=== PATIENT | male | born 1940 | race Caucasian/White ===

== ENCOUNTER 2018-07-13 00:17 | Inpatient (IN) | payer MEDICARE, OTHER ==
[2018-07-13] VITALS (15 sets, daily range): BP systolic 113–166; BP diastolic 55–100
[~2018-07-13] VITALS: Ht 172.7 cm; Wt 65.3 kg
[~2018-07-13 00:17] MED LIST: ASPI-757 PO; ATR80PT PO; LISI-374 PO; METF-450 PO; METO50TA19 PO
--- NOTE | 2018-07-13 04:52 | LEVENE H&P ---
DATE OF ADMISSION: July 13, 2018 IDENTIFICATION/CHIEF COMPLAINT Cristian is an 78-year-old gentleman with chief complaint of left hip pain. HISTORY OF PRESENT ILLNESS Patient has a longstanding history of hip arthritis, progressively painful and debilitating, refractory to conservative care. Surgery is indicated to relieve symptoms after failure of nonoperative measures. PAST MEDICAL HISTORY Notable for hypercholesterolemia, hypertension, remote history of blood transfusion. ALLERGIES MILK. He has no known drug allergies. CURRENT MEDICATIONS 1. Metformin 500 mg p.o. b.i.d. 2. Atorvastatin 80 mg p.o. daily. 3. Aspirin 325 mg p.o. daily. 4. Metoprolol ER 50 mg p.o. daily. 5. Lisinopril 40 mg p.o. daily. PAST SURGICAL HISTORY Notable for prior hip fracture and subsequent hardware removal from the same side, lumbar fracture, prostatectomy, and subsequent surgery for removal of scar tissue around the prostate area. REVIEW OF SYSTEMS Notable for prostate cancer with no evidence of recurrent disease, borderline diabetes, severe headaches, and transient ischemic attacks. SOCIAL HISTORY Negative for tobacco and alcohol use. FAMILY HISTORY Noncontributory. PHYSICAL EXAMINATION GENERAL: This is a healthy male who appears stated age. HEENT: Normocephalic, atraumatic. NECK: Supple. LUNGS: Clear. HEART: Regular. ABDOMEN: Soft. ORTHOPEDIC: Left hip is painful with combined flexion and rotation. He is stiff, lacking significant internal rotation versus contralateral. Hip girdle strength is good. Skin envelope is intact. Calves nontender. Neurovascular function intact. Radiographs demonstrate end-stage hip arthritis. ASSESSMENT Left hip degenerative joint disease refractory to conservative care. PLAN Per patient request, will proceed with total hip arthroplasty. The nature of the procedure, risks and benefits, and the anticipated rehab course were reviewed. The risks include but are not limited to , major medical or anesthetic complications, infection, neurovascular injury, blood transfusion, stiffness, scarring, fracture, tendon rupture, instability, implant loosening, migration, or failure, persistent or recurrent pain, leg length discrepancy, need for future surgery, and other unforeseen. He understands and wishes to proceed. Signed permit was placed on the chart. No guarantees were given or implied. SHERRI
[2018-07-13] MEDS ORDERED: METOPROLOL SUCC XL 50 MG TABCR 50 MG TAB.ER.24H PO ONE (08:35)
[2018-07-13] MEDS ORDERED: MIDAZOLAM 2 MG/2 ML VIAL IVP PRN (08:45)
[2018-07-13] MEDS ORDERED: ROPIVACAINE/EPI/CLONIDINE/KET 50 ML SYRINGE INJ ONE (08:45)
[2018-07-13] MEDS ORDERED: NORMOSOL R SOLN(*) 1000 ML BAG 1,000 ML IV PRN ×2 (08:45→13:15)
[2018-07-13] MEDS ORDERED: FAMOTIDINE 20 MG TAB PO ONE (08:45)
[2018-07-13] MEDS ORDERED: ceFAZolin(*) 1 GM VIAL 1 GM in NS(*) 0.9% 100 ML MINI-BAG 100 ML IVPB ONE (08:45)
[2018-07-13] MEDS ORDERED: ACETAMINOPHEN 500 MG TAB PO ONE (08:45)
[2018-07-13] MEDS ORDERED: PREGABALIN 75 MG CAPSULE PO ONE (08:45)
[2018-07-13] MEDS ORDERED: TRANEXAMIC AC 1000 MG/10ML SDV 1,000 MG in DEXTROSE 5% 50 ML BAG 50 ML IV ONE (08:45)
[2018-07-13] MEDS ORDERED: CELECOXIB 200 MG CAP PO ONE (08:45)
[2018-07-13] MEDS ORDERED: LIDOCAINE/SOD BICARB 8.4% SYR ID ONE (08:45)
[2018-07-13] MEDS ORDERED: fentaNYL CITR 100 MCG/2 ML AMP ONE (09:26)
[2018-07-13] MEDS ORDERED: DEXAMETHASONE SOD PHOS 10MG/ML ONE (09:27)
[2018-07-13] MEDS ORDERED: ONDANSETRON 4 MG/2 ML VIAL ONE (09:27)
[2018-07-13] MEDS ORDERED: KETAMINE HCL-NS 50 MG/5 ML SYR ONE (09:27)
[2018-07-13] MEDS ORDERED: LIDOCAINE MPF 1% 5 ML VIAL ONE (09:27)
[2018-07-13] MEDS ORDERED: PROPOFOL EMUL(*) 10MG/ML 20 ML 20 ML ONE (09:27)
[2018-07-13] MEDS ORDERED: VANCOMYCIN 1 GM VIAL ONE (11:24)
[2018-07-13] MEDS ORDERED: PROMETHAZINE 25 MG/ML 1 ML AMP IVP PRN (13:15)
[2018-07-13] MEDS ORDERED: BENZOCAINE/MENTHOL 1 EACH LOZG PO PRN (13:15)
[2018-07-13] MEDS ORDERED: ZOLPIDEM TARTRATE 5 MG TAB PO PRN (13:15)
[2018-07-13] MEDS ORDERED: diphenhydrAMINE 25 MG CAP PO PRN (13:15)
[2018-07-13] MEDS ORDERED: FLUSH 10 ML SYR IVP PRN (13:15)
[2018-07-13] MEDS ORDERED: ACETAMINOPHEN 325 MG TAB PO PRN (13:15)
[2018-07-13] MEDS ORDERED: BISACODYL 10 MG SUPP PR PRN (13:15)
[2018-07-13] MEDS ORDERED: MAGNESIUM HYDROXIDE* 30ML UDCP PO PRN (13:15)
[2018-07-13] MEDS ORDERED: diphenhydrAMINE 50 MG/ML VIAL IVP PRN (13:15)
[2018-07-13] MEDS ORDERED: DIAZEPAM 5 MG TAB PO PRN (13:15)
--- NOTE | 2018-07-13 14:47 | RADIOLOGY IMAGING REPORT ---
FACILITY: [facility] [place] PATIENT NAME: Cristian Pisano : 1940 MR: [id number] V: [id number] EXAM DATE: ORDERING PHYSICIAN: KARRIE SCHRADER TECHNOLOGIST: Location: [facility] [place] Patient: Cristian Pisano : 1940 Visit/Account:[id number] Date of Sevice: 07/13/2018 PELVIS INDICATION: Left hip arthroplasty. COMPARISON: None available FINDINGS: Single frontal view of the pelvis is obtained. A left total hip arthroplasty has been placed. Compone nts project in near anatomic alignment. No fracture. There is gas within the operative bed and within the joint space. There are overlying skin glory. There are atherosclerotic vascular calcifications seen within the femoral vessels bilaterally. Surgical clips noted in the pelvis. Correlate clinicall y. IMPRESSION: 1. Interval left total hip arthroplasty placement. Report Dictated By: Tonio Desai at 07/13/2018 2:42 PM Report E-Signed By: Tonio Desai at 07/13/2018 2:44 PM WSN:[id number]
--- NOTE | 2018-07-13 15:24 | Hospitalist Consultation ---
History of Present Illness Requesting Physician Dr. Vogt Reason for Consult Medical Management Chief Complaint s/p left hip replacement History of Present Illness He was admitted s/p left hip replacement. It is reported the surgery went well and without complication. History Problems: (1) Type 2 diabetes mellitus Status: Chronic (2) Hypertension Status: Chronic (3) Hyperlipidemia Status: Chronic (4) TIA (transient ischemic attack) Status: Chronic Home Meds Reported Medications Metformin Hcl (METFORMIN HCL) 500 Mg Tablet, 0.5 TAB PO BID, TAB 07/07/18 Lisinopril (LISINOPRIL) 40 Mg Tablet, 40 MG PO QDAY, TAB 07/07/18 Metoprolol Succinate (METOPROLOL SUCCINATE) 50 Mg Tab.er.24h, 1 TAB PO QDAY, TAB 07/07/18 Aspirin (ASPIRIN) 325 Mg Tablet, 325 MG PO DAILY, TAB 07/07/18 Atorvastatin (LIPITOR) 80 Mg Tab, 1 TAB PO QDAY, TAB 07/07/18 Allergies: Coded Allergies: milk (Verified Allergy, Mild, DIARRHEA, 07/07/18) Hx Smoking: No Caffeine Intake: Coffee, Soda Caffeine/Cups Per Day: MTN DEW, 1/2 CUP COFFEE Hx Alcohol Use: Yes When Quit Alcohol?: 2018 Hx Substance Use Disorder: No Review of Systems All Systems Reviewed/Normal: Yes, Except as Noted Exam Vital Signs Vital Signs Date Time Temp Pulse Resp B/P (MAP) Pulse Ox O2 Delivery O2 Flow Rate FiO2 07/13/18 14:59 100 Nasal Cannula 2.0 07/13/18 14:45 97.0 70 14 143/76 (98) General Appearance: Alert, Awake, No Acute Distress, Afebrile Neuro: No Gross deficits Cardiovascular: Regular Rate and Rhythm Respiratory: No Respiratory Distress, Clear to Auscultation Psych: Alert & Oriented X3, Appropriate Mood & Affect Assessment and Plan Problems: (1) Status post left hip replacement Status: Acute Assessment & Plan: Followed by Dr. Vogt. He will be placed on Aspirin for DVT prophylaxis. (2) Type 2 diabetes mellitus Status: Chronic Assessment & Plan: Continue chronic Metformin. He will also be placed on SS insulin #1 and AC/HS blood glucose checks. (3) Hypertension Status: Chronic Assessment & Plan: Continue chronic Metoprolol and Lisinopril with hold parameters. (4) Hyperlipidemia Status: Chronic Assessment & Plan: Continue chronic Atorvastatin. (5) TIA (transient ischemic attack) Status: Chronic Assessment & Plan: Continue chronic Aspirin. Venous Thromboembolism Antithrombotics Is Pt On Any Antithrombotics?: No Exam Sepsis Risk: No Definite Risk JJ TAYLOR FURNITURE INSPECTOR July 13, 2018 15:24
[2018-07-13] MEDS: INSULIN HUM LISPRO 100 UN/ML 3 ML VIAL SUBQ PRN ×2 (16:35→20:11)
[2018-07-13] MEDS: CELECOXIB 200 MG CAP PO SCH (16:37)
--- NOTE | 2018-07-13 17:10 | NUR ---
Physical Therapy Impression PT eval completed. While seated at EOB, pt attempted to scoot forward and noted lack of trunk control for appropriate sitting balance, which required Mod assist by PT to return to upright sitting after aggressive loss of balance forward. Pt not yet at an appropriate level to allow for safe use of urinal while seated and EOB and unsafe to stand at this time as well. Nursing encouraged to utilize urinal in supine until neuro checks improve. Physical Therapy Goals 1. Pt to be SBA/CGA for supine to/from sit transfers and bed mobility 2. Pt to be SBA/CGA for sit to/from stand with FWW 3. Pt to ambulate 100' with FWW and SBA/Modified indep 4. Pt to complete up/down platform step x 2 with rail and/or FWW and SBA/CGA for safety. Patient's Goals
[2018-07-13] MEDS: metFORMIN HCL 500 MG TAB PO SCH (20:09)
[2018-07-13] MEDS: ceFAZolin(*) 1 GM VIAL 1 GM in NS(*) 0.9% 100 ML MINI-BAG 100 ML IVPB SCH (20:09)
[2018-07-14] MEDS: APAP/HYDROCODONE 325/7.5 TAB PO PRN ×3 (01:05→12:30)
--- NOTE | 2018-07-14 03:33 | OPERATIVE REPORT 1 ---
EVENT DATE: July 13, 2018 SURGEON: Ernesto Vogt MD ANESTHESIOLOGIST: Titus Carmona DO ANESTHESIA: General plus spinal. EYE SPECIALIST: Zafar Ledbetter PA-C PREOPERATIVE DIAGNOSIS Left hip degenerative joint disease. POSTOPERATIVE DIAGNOSIS Left hip degenerative joint disease. PROCEDURE PERFORMED Left total hip arthroplasty. ESTIMATED BLOOD LOSS 300 mL. DRAINS None. SPECIMENS None. COMPLICATIONS None apparent. IMPLANTS USED Iqra system, an Accolade II 130-degree neck angle hip stem, size 6; a Biolox Delta ceramic V40 femoral head, 36 mm, +7.5; a Trident PSL VÁZQUEZ cluster acetabular shell 54 with a Trident X3 0-degree polyethylene liner, 36 mm, to accommodate a 36 mm head. INDICATIONS Cristian has intractable pain after prior acetabular fracture and hardware removal from post-traumatic arthritis. Surgery is indicated to treat his end-stage hip arthritis, to relieve pain and improve function after failure of nonoperative measures. DESCRIPTION OF PROCEDURE The patient was taken to the operating room and placed supine on the operating table. General anesthesia was induced after spinal block was administered by the anesthesiologist. Antibiotics and TXA were administered IV. The patient was positioned in the right lateral decubitus on a well-padded peg board. His pelvis was secured in a vertical position. All bony prominences and superficial nerves were well padded. The left hip girdle and lower extremity were prepped and draped in the usual sterile fashion for hip arthroplasty. The old incision was made, which was consistent with a posterolateral approach, carried down through skin and scar tissue to the deep fascia. The fascia was incised over the tip of the trochanter, extended distally in line with the femur and proximally in line with the magdy fibers. Adhesions were broken up. The trochanteric bursa was excised. The interval between the abductor and external rotators was identified. The abductor mechanism was protected with a blunt Hohmann. An L-capsulotomy was made with the horizontal limb above the piriformis, opening up the capsule, releasing the capsule and external rotators off the posterior aspect of the femur. These were tagged for later reattachment with #2 Vicryl suture. The femoral head was dislocated. End-stage arthritis was noted. A 1.5 cm neck cut was made consistent with preoperative planning. The femoral head was extracted. The femur was translocated anteriorly. Periacetabular retractors were placed with the tips down on bone to avoid critical neurovascular structures. Labrum and pulvinar were excised. Reaming was taken with a 44 to the true medial wall of the acetabulum, expanded in 2 mm increments up to 54, where nice rim contact was obtained. The 54 trial has nice fit. The throat of the acetabulum was opened with a 55 to accommodate the raised-rim liner. Surface was lavaged. The actual implant was impacted in approximately 40 degrees of lateral opening and 15 degrees of anteversion using the transverse acetabular ligament, internal bony landmarks and extracorporeal guide to guide socket placement. Rock-solid fixation was achieved. No adjuvant fixation was felt to be needed. The liner was impacted into a clean and dried shell. Attention was turned to femoral preparation. The superior neck was resected with cookie-cutter. A Em awl found the canal. Tapered broaching was performed up to 6. A 6 broach had not fit, fill and stability. Trial reduction was performed off this. Good caodaism of soft tissue tension, limb length, and stability were achievable. The broach was removed. The actual stem was impacted and seats at the same height. A +7.5 seems optimal for caodaism of soft tissue tension and stability. The Maddox taper was lavaged and dried, and the actual head was impacted into position. The joint was reduced. Drill holes were created in the posterior femur to reattach capsule and external rotators, and then deep fascia was closed distally with #2 Ethibond, proximally with #2 Vicryl. Subcu was closed with 3-0 Vicryl, skin with surgical glory. Xeroform was applied, followed by a dry sterile dressing and hip wrap. The patient was rolled supine and an abduction pillow was placed. He was awakened from anesthesia and taken to the recovery room in stable condition, having tolerated the procedure well. The plan is for a standard RAIZA rehab protocol, weightbearing as tolerated, posterior hip precautions. [facility]
[2018-07-14 04:00] VITALS: BP 116/78
[2018-07-14] MEDS: ceFAZolin(*) 1 GM VIAL 1 GM in NS(*) 0.9% 100 ML MINI-BAG 100 ML IVPB SCH ×2 (04:01→12:00)
[2018-07-14 07:33] VITALS: BP 112/69
[2018-07-14] MEDS: LISINOPRIL 20 MG TAB PO SCH (09:00)
[2018-07-14] MEDS: CELECOXIB 200 MG CAP PO SCH ×2 (09:05→17:36)
[2018-07-14] MEDS: INSULIN HUM LISPRO 100 UN/ML 3 ML VIAL SUBQ PRN ×4 (09:05→20:28)
[2018-07-14] MEDS: metFORMIN HCL 500 MG TAB PO SCH ×2 (09:05→20:26)
[2018-07-14] MEDS: METOPROLOL SUCC XL 50 MG TABCR 50 MG TAB.ER.24H PO SCH (09:05)
[2018-07-14] MEDS: ATORVASTATIN 40 MG TAB PO SCH (09:05)
[2018-07-14] MEDS: ASPIRIN 325 MG TAB PO SCH (09:05)
[2018-07-14 11:30] VITALS: BP 121/64
--- NOTE | 2018-07-14 12:00 | NUR ---
Delayed documentation d/t system downtime
--- NOTE | 2018-07-14 12:41 | NUR ---
Occupational Therapy Impression Pt. ready for d/c to home when cleared medically and by PT services. Pt. states that will assist with all ADL activities at home. Pt. and not interested in DME acquisition. Occupational Therapy Goals Patient's Goal
--- NOTE | 2018-07-14 12:42 | Hospitalist Progress Note ---
Subjective Progress Notes Subjective DUTCH overnight, doing well. Continues to work with PT. Physical Exam Vital Signs Date Time Temp Pulse Resp B/P (MAP) Pulse Ox O2 Delivery O2 Flow Rate FiO2 07/14/18 07:42 0.5 07/14/18 07:41 85 07/14/18 07:33 96.8 90 20 112/69 (83) Nasal Cannula Intake and Output 07/14/18 07:00 Intake Total 2020 ml Output Total 301 ml Balance 1719 ml Intake Oral 1020 ml IV Total 1000 ml Output Urine Total 301 ml General Appearance: Alert, Awake, No Acute Distress Neuro: No Gross deficits Cardiovascular: Normal Rhythm & Peripheral Pulses Respiratory: No Respiratory Distress Extremities: Soft and Non Tender, Warm, Pulses, Perfused Assessment and Plan Problems: (1) Status post left hip replacement Status: Acute Assessment & Plan: Followed by Dr. Vogt. He will be placed on Aspirin for DVT prophylaxis. (2) Type 2 diabetes mellitus Status: Chronic Assessment & Plan: Continue chronic Metformin. He will also be placed on SS insulin #1 and AC/HS blood glucose checks. (3) Hypertension Status: Chronic Assessment & Plan: Continue chronic Metoprolol and Lisinopril with hold parameters. (4) Hyperlipidemia Status: Chronic Assessment & Plan: Continue chronic Atorvastatin. (5) TIA (transient ischemic attack) Status: Chronic Assessment & Plan: Continue chronic Aspirin. Exam Sepsis Risk: No Definite Risk YI SOLIS LEON DO July 14, 2018 12:42
--- NOTE | 2018-07-14 13:30 | NUR ---
Physical Therapy Impression Attempted to see pt for mobility, pt declined politely due to nausea. Nursing giving medications. Will attempt mobility later this PM with different therapist. Cont. with POC. Physical Therapy Goals Patient's Goals
[2018-07-14 15:11] VITALS: BP 113/70
--- NOTE | 2018-07-14 18:18 | NUR ---
Physical Therapy Impression Pt progressing very well with distance ambulation. Pt would like to use 4WW during next therapy session, as this is what he plans to utilize at home. Physical Therapy Goals 1. Pt to be SBA/CGA for supine to/from sit transfers and bed mobility 2. Pt to be SBA/CGA for sit to/from stand with FWW 3. Pt to ambulate 100' with FWW and SBA/Modified indep 4. Pt to complete up/down platform step x 2 with rail and/or FWW and SBA/CGA for safety. Patient's Goals
[2018-07-14 18:56] VITALS: BP 142/75
[2018-07-15 06:05] VITALS: BP 120/63
[2018-07-15] MEDS: CELECOXIB 200 MG CAP PO SCH (08:09)
[2018-07-15 08:10] VITALS: BP 138/66
[2018-07-15] MEDS: LISINOPRIL 20 MG TAB PO SCH (08:18)
[2018-07-15] MEDS: metFORMIN HCL 500 MG TAB PO SCH (08:19)
[2018-07-15] MEDS: ATORVASTATIN 40 MG TAB PO SCH (08:19)
[2018-07-15] MEDS: ASPIRIN 325 MG TAB PO SCH (08:19)
[2018-07-15] MEDS: METOPROLOL SUCC XL 50 MG TABCR 50 MG TAB.ER.24H PO SCH (08:19)
--- NOTE | 2018-07-15 09:47 | NUR ---
Physical Therapy Impression Patient received cuing when going from standing to sitting to slow down and bring walker close to bed and to lock brakes before sitting was able to perform with cuing and SBA. Bed Mobility I. Patient instructed in gait training with 4WW ~250 with mod I. Patient did receive cues to slow down as patient ambulates quickly. 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 Patient performed stairs ascend and descend 4 stairs x 2 reps with CGA and step to gait with double railing going up with left LE and down with right. Patient demonstrated safe technique. All goals are met and patient is ready for d/c to home. Physical Therapy Goals Patient's Goals
[2018-07-15] MEDS ORDERED: HYDR-385 PO (10:05)
[2018-07-15] MEDS: APAP/HYDROCODONE 325/7.5 TAB PO PRN (11:01)
--- NOTE | 2018-07-15 11:07 | Hospitalist Progress Note ---
Subjective Progress Notes Subjective He was admitted s/p hip replacement. He has no complaints this morning. He had no acute events overnight. Patient Complains of: Cardiovascular: No: Chest Pain Respiratory: No: Shortness of Breath Physical Exam Vital Signs Date Time Temp Pulse Resp B/P (MAP) Pulse Ox O2 Delivery O2 Flow Rate FiO2 07/15/18 08:17 94 07/15/18 08:10 Room Air 07/15/18 08:10 83 138/66 (90) 07/15/18 06:05 98.3 14 07/14/18 15:11 0.5 Intake and Output 07/15/18 07:00 Intake Total 1170 ml Balance 1170 ml Intake Oral 1060 ml IV Total 110 ml # Voids 4 General Appearance: Alert, Awake, No Acute Distress, Afebrile Neuro: No Gross deficits Cardiovascular: Regular Rate and Rhythm Respiratory: No Respiratory Distress, Clear to Auscultation GI: Soft and Non-Tender Psych: Alert & Oriented X3, Appropriate Mood & Affect Assessment and Plan Problems: (1) Status post left hip replacement Status: Acute Assessment & Plan: Followed by Dr. Vogt. He will be placed on Aspirin for DVT prophylaxis. (2) Type 2 diabetes mellitus Status: Chronic Assessment & Plan: Continue chronic Metformin. He was placed on SS insulin #1 and AC/HS blood glucose checks. (3) Hypertension Status: Chronic Assessment & Plan: Continue chronic Metoprolol and Lisinopril with hold parameters. (4) Hyperlipidemia Status: Chronic Assessment & Plan: Continue chronic Atorvastatin. (5) TIA (transient ischemic attack) Status: Chronic Assessment & Plan: Continue chronic Aspirin. Exam Sepsis Risk: No Definite Risk JJ TAYLOR SENIOR SUSTAINABILITY ADVISOR July 15, 2018 11:07
== END 2018-07-15 11:40 | disposition home or self-care (01) | DRG 470 ==
LOC: OR 00:17 → MED 14:40
PROVIDERS: ADMIT Orthopaedic Surgery; ATTEND Orthopaedic Surgery
PROC: 0SRB04A Replacement of Left Hip Joint with Ceramic on Polyethylene Synthetic Substitute, Uncemented, Open Approach (ICD-10-PCS; principal; 2018-07-13 11:06)
DX: M16.12 Unilateral primary osteoarthritis, left hip (principal); E11.9 Type 2 diabetes mellitus without complications; F43.12 Post-traumatic stress disorder, chronic; I10 Essential (primary) hypertension; Z86.73 Personal history of transient ischemic attack (TIA), and cerebral infarction without residual deficits; Z91.011 Allergy to milk products; E78.5 Hyperlipidemia, unspecified; Z79.84 Long term (current) use of oral hypoglycemic drugs
CPT/HCPCS: 36415; 36416; 72170; 82948; 85610; 86850; 86900; 86901; 97161; C1776; J0690; J1100; J2001; J2250; J2405; J2550; J2704; J3010; J3370; J3490; J7060